=== PATIENT | male | born 1935 | race Caucasian/White ===

== ENCOUNTER 2016-11-06 17:08 | Observation (INO) | payer MEDICARE | END 2016-11-08 11:12 | disposition other institution (70) | LOC: ER 17:08 → MS 23:59 → ER 11-07 02:08 → MS 11-08 11:12 | PROVIDERS: ADMIT Family Medicine | DX: J44.0 Chronic obstructive pulmonary disease with (acute) lower respiratory infection (principal); J69.0 Pneumonitis due to inhalation of food and vomit; J20.9 Acute bronchitis, unspecified; D64.9 Anemia, unspecified; I12.9 Hypertensive chronic kidney disease with stage 1 through stage 4 chronic kidney disease, or unspecified chronic kidney disease; N18.9 Chronic kidney disease, unspecified; K80.80 Other cholelithiasis without obstruction; G20 Parkinson's disease; F02.80 Dementia in other diseases classified elsewhere, unspecified severity, without behavioral disturbance, psychotic disturbance, mood disturbance, and anxiety; E78.5 Hyperlipidemia, unspecified; Z86.711 Personal history of pulmonary embolism; Z86.73 Personal history of transient ischemic attack (TIA), and cerebral infarction without residual deficits; N40.0 Benign prostatic hyperplasia without lower urinary tract symptoms; R11.2 Nausea with vomiting, unspecified; H91.93 Unspecified hearing loss, bilateral; N28.1 Cyst of kidney, acquired; R13.10 Dysphagia, unspecified; F32.9 Major depressive disorder, single episode, unspecified; I25.10 Atherosclerotic heart disease of native coronary artery without angina pectoris; I25.2 Old myocardial infarction; M89.9 Disorder of bone, unspecified; K44.9 Diaphragmatic hernia without obstruction or gangrene; Z95.5 Presence of coronary angioplasty implant and graft; Z87.891 Personal history of nicotine dependence; Z83.3 Family history of diabetes mellitus; Z80.0 Family history of malignant neoplasm of digestive organs; Z88.2 Allergy status to sulfonamides; Z88.8 Allergy status to other drugs, medicaments and biological substances; Z79.899 Other long term (current) drug therapy | CPT/HCPCS: 36415; 36600; 71010; 80048; 80053; 81001; 82607; 82746; 82803; 83540; 83550; 83605; 83880; 85025; 86738; 86850; 86920; 87040; 87449; 92526; 93005; 94664; 96365; 96366; 96375; 99070; 99284; 99285-25; G0378; J7040 ==

== ENCOUNTER 2016-11-06 17:08 | Inpatient (IN) | payer MEDICARE ==
[~2016-11-06] VITALS: Ht 175.3 cm; Wt 79.0 kg
[2016-11-06 18:03] LABS: URINE BILIRUBIN NEGATIVE (NEGATIVE); URINE BLOOD TRACE (NEGATIVE); URINE GLUCOSE (UA) NORMAL (NORMAL); URINE KETONE TRACE (NEGATIVE); URINE LEUKOCYTE ESTERASE TRACE (NEGATIVE); URINE NITRATE NEGATIVE (NEGATIVE); URINE PROTEIN 1+ (NEGATIVE); UROBILINOGEN NORMAL mg/dL (<1.0)
[2016-11-06 18:09] LABS: ARTERIAL BLOOD GAS HCO3 19.3 mmol/L (22-26); ARTERIAL BLOOD GAS PCO2 34.4 mmHg (35-48); ARTERIAL BLOOD GAS pH 7.37 (7.35-7.45)
[2016-11-06 18:12] LABS: BASO % 0.2 % (0.2-1.2); EOS # 0.2 10_X3_uL (0.0-0.5); EOS % 2.5 % (0.8-7.0); GRAN # 7.5 10_X3_uL (1.8-5.4); GRAN % 85.1 % (34.0-67.9); HEMATOCRIT 25.3 % (40-51); LYMPH # 0.8 10_X3_uL (1.3-3.6); LYMPH % 9.3 % (21.8-53.1); MEAN CORPUSCULAR HGB CONC 30.8 g/dL (32.0-36.0); MEAN CORPUSCULAR VOLUME 90.4 fL (79-92); MONO # 0.3 10_X3_uL (0.3-0.8); MONO % 2.9 % (5.3-12.2); PLATELET COUNT 272 x10_3/uL (163-337); RED CELL DISTRIBUTION WIDTH 17.6 % (11.6-14.4); WHITE BLOOD COUNT 8.9 x10_3/uL (4.2-9.1)
[2016-11-06 18:17] LABS: HEMOGLOBIN 7.8 g/dL (13.7-17.5); MEAN CORPUSCULAR HEMOGLOBIN 27.8 pg (27.0-33.0)
[2016-11-06 18:20] LABS: URINE BACTERIA TRACE (NONE SEEN); URINE MUCUS TRACE; URINE RENAL EPITHELIAL CELLS RARE /[HPF] (NONE SEEN); URINE WBC 0-5 /[HPF] (0-3)
[2016-11-06 18:25] LABS: ALBUMIN 3.6 gm/dL (3.4-5.0); ALKALINE PHOSPHATASE 61 U/L (50-136); ALT/SGPT < 5 U/L (7.53-40.17); AST/SGOT 11 U/L (6.66-35.34); BILIRUBIN,TOTAL 0.31 mg/dL (0.0-1.0); BLOOD UREA NITROGEN 45 mg/dL (7-18); CALCIUM 8.3 mg/dL (8.7-10.7); CARBON DIOXIDE 19 mmol/L (21-32); CREATININE 2.9 mg/dL (0.6-1.3); GLUCOSE,RANDOM 111 mg/dL (70-99); POTASSIUM 4.2 mmol/L (3.5-5.1); SODIUM 139 mmol/L (136-145)
[2016-11-07 07:17] LABS: BASO % 0.1 % (0.2-1.2); GRAN # 7.9 10_X3_uL (1.8-5.4); GRAN % 88.5 % (34.0-67.9); LYMPH # 0.6 10_X3_uL (1.3-3.6); LYMPH % 7.1 % (21.8-53.1); MEAN CORPUSCULAR HGB CONC 31.4 g/dL (32.0-36.0); MEAN CORPUSCULAR VOLUME 89.8 fL (79-92); MEAN PLATELET VOLUME 11.6 fl (7.5-11.5); MONO # 0.4 10_X3_uL (0.3-0.8); MONO % 4.3 % (5.3-12.2); PLATELET COUNT 224 x10_3/uL (163-337); RED BLOOD COUNT 2.45 x10_6/uL (4.6-6.1); RED CELL DISTRIBUTION WIDTH 17.9 % (11.6-14.4); WHITE BLOOD COUNT 8.9 x10_3/uL (4.2-9.1)
[2016-11-07 07:19] LABS: HEMOGLOBIN 6.9 g/dL (13.7-17.5); MEAN CORPUSCULAR HEMOGLOBIN 28.1 pg (27.0-33.0)
[2016-11-07 07:28] LABS: CALCIUM 8.1 mg/dL (8.7-10.7); CREATININE 3.1 mg/dL (0.6-1.3); POTASSIUM 4.8 mmol/L (3.5-5.1)
[2016-11-07 09:09] LABS: SERUM IRON 14 ug/dl (65-175); UIBC 209 ug/dL (135-370)
[2016-11-07 10:39] LABS: FOLATE 6.83 ng/mL (3.17-24.25)
[2016-11-08 12:06] LABS: HEMATOCRIT 27.2 % (40-51); HEMOGLOBIN 8.6 g/dL (13.7-17.5); MEAN CORPUSCULAR HEMOGLOBIN 28.5 pg (27.0-33.0); MEAN CORPUSCULAR HGB CONC 31.6 g/dL (32.0-36.0); MEAN CORPUSCULAR VOLUME 90.1 fL (79-92); MEAN PLATELET VOLUME 10.6 fl (7.5-11.5); RED BLOOD COUNT 3.02 x10_6/uL (4.6-6.1); RED CELL DISTRIBUTION WIDTH 17.8 % (11.6-14.4); WHITE BLOOD COUNT 7.7 x10_3/uL (4.2-9.1)
[2016-11-08 12:12] LABS: CALCIUM 8.3 mg/dL (8.7-10.7)
[2016-11-09 07:10] LABS: HEMATOCRIT 27.7 % (40-51); HEMOGLOBIN 8.8 g/dL (13.7-17.5); MEAN CORPUSCULAR HEMOGLOBIN 28.6 pg (27.0-33.0); MEAN CORPUSCULAR HGB CONC 31.8 g/dL (32.0-36.0); MEAN CORPUSCULAR VOLUME 89.9 fL (79-92); MEAN PLATELET VOLUME 11.5 fl (7.5-11.5); RED BLOOD COUNT 3.08 x10_6/uL (4.6-6.1); RED CELL DISTRIBUTION WIDTH 17.7 % (11.6-14.4); WHITE BLOOD COUNT 7.7 x10_3/uL (4.2-9.1)
[2016-11-09 07:29] LABS: CALCIUM 8.4 mg/dL (8.7-10.7); CREATININE 2.9 mg/dL (0.6-1.3); POTASSIUM 3.6 mmol/L (3.5-5.1)
[2016-11-10 06:51] LABS: HEMOGLOBIN 8.9 g/dL (13.7-17.5); MEAN CORPUSCULAR HEMOGLOBIN 28.7 pg (27.0-33.0); MEAN CORPUSCULAR HGB CONC 31.8 g/dL (32.0-36.0); MEAN CORPUSCULAR VOLUME 90.3 fL (79-92); MEAN PLATELET VOLUME 11.1 fl (7.5-11.5); RED BLOOD COUNT 3.1 x10_6/uL (4.6-6.1); WHITE BLOOD COUNT 6.9 x10_3/uL (4.2-9.1)
[2016-11-10 07:00] LABS: CALCIUM 8.4 mg/dL (8.7-10.7); CREATININE 2.6 mg/dL (0.6-1.3); POTASSIUM 3.6 mmol/L (3.5-5.1)
[2016-11-11 07:02] LABS: HEMATOCRIT 27.9 % (40-51); HEMOGLOBIN 8.6 g/dL (13.7-17.5); MEAN CORPUSCULAR HEMOGLOBIN 28.3 pg (27.0-33.0); MEAN CORPUSCULAR HGB CONC 30.8 g/dL (32.0-36.0); MEAN CORPUSCULAR VOLUME 91.8 fL (79-92); MEAN PLATELET VOLUME 10.9 fl (7.5-11.5); RED BLOOD COUNT 3.04 x10_6/uL (4.6-6.1); RED CELL DISTRIBUTION WIDTH 18.1 % (11.6-14.4); WHITE BLOOD COUNT 7.6 x10_3/uL (4.2-9.1)
[2016-11-11 07:07] LABS: ALBUMIN 3.2 gm/dL (3.4-5.0); ALKALINE PHOSPHATASE 52 U/L (50-136); AST/SGOT 7 U/L (6.66-35.34); BILIRUBIN,TOTAL 0.25 mg/dL (0.0-1.0); BLOOD UREA NITROGEN 27 mg/dL (7-18); CARBON DIOXIDE 19 mmol/L (21-32); CREATININE 2.8 mg/dL (0.6-1.3); GLUCOSE,RANDOM 110 mg/dL (70-99); POTASSIUM 3.9 mmol/L (3.5-5.1); SODIUM 139 mmol/L (136-145); TOTAL PROTEIN 6.1 gm/dL (6.4-8.2)
[2016-11-11 07:09] LABS: ALT/SGPT < 5 U/L (7.53-40.17)
[2016-11-12 06:51] LABS: HEMATOCRIT 28.5 % (40-51); HEMOGLOBIN 8.7 g/dL (13.7-17.5); MEAN CORPUSCULAR HEMOGLOBIN 28.1 pg (27.0-33.0); MEAN CORPUSCULAR HGB CONC 30.5 g/dL (32.0-36.0); MEAN CORPUSCULAR VOLUME 91.9 fL (79-92); MEAN PLATELET VOLUME 10.8 fl (7.5-11.5); RED BLOOD COUNT 3.1 x10_6/uL (4.6-6.1); RED CELL DISTRIBUTION WIDTH 18.1 % (11.6-14.4); WHITE BLOOD COUNT 7.3 x10_3/uL (4.2-9.1)
[2016-11-12 07:02] LABS: CALCIUM 8.2 mg/dL (8.7-10.7); CREATININE 2.7 mg/dL (0.6-1.3)
== END 2016-11-12 14:50 | disposition home or self-care (01) | DRG 190 ==
LOC: ER 17:08 → MS 11-07 02:08
PROVIDERS: Emergency Medicine; Family Medicine; ADMIT Family Medicine
DX: J44.0 Chronic obstructive pulmonary disease with (acute) lower respiratory infection (principal); J69.0 Pneumonitis due to inhalation of food and vomit; J20.9 Acute bronchitis, unspecified; I12.9 Hypertensive chronic kidney disease with stage 1 through stage 4 chronic kidney disease, or unspecified chronic kidney disease; N18.9 Chronic kidney disease, unspecified; D64.9 Anemia, unspecified; K80.80 Other cholelithiasis without obstruction; G20 Parkinson's disease; F02.80 Dementia in other diseases classified elsewhere, unspecified severity, without behavioral disturbance, psychotic disturbance, mood disturbance, and anxiety; E78.5 Hyperlipidemia, unspecified; Z86.711 Personal history of pulmonary embolism; Z86.73 Personal history of transient ischemic attack (TIA), and cerebral infarction without residual deficits; N40.0 Benign prostatic hyperplasia without lower urinary tract symptoms; R11.2 Nausea with vomiting, unspecified; H91.93 Unspecified hearing loss, bilateral; N28.1 Cyst of kidney, acquired; R13.10 Dysphagia, unspecified; F32.9 Major depressive disorder, single episode, unspecified; I25.10 Atherosclerotic heart disease of native coronary artery without angina pectoris; I25.2 Old myocardial infarction; M89.9 Disorder of bone, unspecified; K44.9 Diaphragmatic hernia without obstruction or gangrene; Z95.5 Presence of coronary angioplasty implant and graft; Z87.891 Personal history of nicotine dependence; Z83.3 Family history of diabetes mellitus; Z80.0 Family history of malignant neoplasm of digestive organs; Z88.2 Allergy status to sulfonamides; Z88.8 Allergy status to other drugs, medicaments and biological substances; Z79.899 Other long term (current) drug therapy
CPT/HCPCS: 36415; 36430; 36600; 71010; 71250; 80048; 80053; 81001; 82607; 82746; 82803; 83540; 83550; 83605; 83880; 85025; 86738; 86850; 86900; 86901; 86920; 87040; 87449; 92526; 93005; 94640; 94664; 96365; 99070; 99284; 99285-25; G0328-QW; J7040; P9016